=== PATIENT | female | born 2000 | race Caucasian/White ===

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

== ENCOUNTER → 2022-01-17 | Outpatient (CLI) | payer OTHER ==
[~2022-01-17] MED LIST: PROTONIX20 MG PO
== END ==
LOC: COL.RAD 09:26
DX: G43.909 Migraine, unspecified, not intractable, without status migrainosus (principal)